=== PATIENT | female | born 1960 | race Caucasian/White ===

== ENCOUNTER 2020-06-18 21:29 | Emergency (ER) | payer OTHER ==
[~2020-06-18] VITALS: Ht 167.6 cm; Wt 117.9 kg
[2020-06-18] MEDS ORDERED: VENTOLIN HFA18 GM INH (21:46)
[2020-06-18] MEDS ORDERED: ABILIFY15 MG PO (21:46)
[2020-06-18] MEDS ORDERED: NEURONTIN400 MG PO (21:47)
[2020-06-18] MEDS ORDERED: PROPRANOLOL HCL20 MG PO (21:47)
[2020-06-18] MEDS ORDERED: HYDROXYZINE PAM50 MG PO (21:47)
[2020-06-18] MEDS ORDERED: METFORMIN HCL1000 MG PO (21:48)
[2020-06-18] MEDS ORDERED: BUSPIRONE HCL10 MG PO (21:48)
[2020-06-18] MEDS ORDERED: FLUOXETINE HCL40 MG PO (21:49)
[2020-06-18] MEDS ORDERED: TRAZODONE HCL50 MG PO (21:49)
[2020-06-18] MEDS ORDERED: MIRTAZAPINE7.5 MG PO (21:49)
[2020-06-19] MEDS ORDERED: ULTRAM50 MG PO (05:17)
[2020-06-19] MEDS ORDERED: CRUTCH1 EACH MISC (05:20)
== END 2020-06-19 05:49 | disposition home or self-care (01) ==
LOC: ED 21:29
DX: S82.65XA Nondisplaced fracture of lateral malleolus of left fibula, initial encounter for closed fracture (principal); F10.129 Alcohol abuse with intoxication, unspecified; Y90.8 Blood alcohol level of 240 mg/100 ml or more; E11.9 Type 2 diabetes mellitus without complications; J45.909 Unspecified asthma, uncomplicated; F17.200 Nicotine dependence, unspecified, uncomplicated; Z79.899 Other long term (current) drug therapy; Z79.84 Long term (current) use of oral hypoglycemic drugs
CPT/HCPCS: 73610; 80053; 80176; 81001; 84443; 84703; 85025; 99284-25; G0480